=== PATIENT | male | born 1945 | race Caucasian/White ===

== ENCOUNTER 2022-08-20 11:32 | Outpatient (CLI) | payer MEDICARE, OTHER | END 2022-08-20 11:33 | disposition home or self-care (01) | LOC: CSHCP 11:32 | PROVIDERS: ATTEND Internal Medicine Critical Care Medicine | DX: J84.112 Idiopathic pulmonary fibrosis (principal); R94.2 Abnormal results of pulmonary function studies | CPT/HCPCS: 94060; 94726; 94729; 94760 ==